=== PATIENT | female | born 1960 | race Caucasian/White ===

== ENCOUNTER 2021-04-13 22:40 | Emergency (ER) | payer MEDICAID ==
[2021-04-13] MEDS ORDERED: ALPRAZolam 0.5 MG Tab PO ONE (22:57)
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
== END 2021-04-13 23:10 | disposition home or self-care (01) ==
LOC: MW.ED 22:40
DX: Z02.89 Encounter for other administrative examinations (principal)
CPT/HCPCS: 99283; A9270; 99282